=== PATIENT | female | born 1980 | race African-American/Black ===

== ENCOUNTER 2016-08-27 20:19 | Emergency (ER) | payer SELFPAY ==
[~2016-08-27] VITALS: Ht 160 cm; Wt 59.0 kg
[~2016-08-27 20:19] MED LIST: HYDR-971 PO; ONDA4TAB10 PO; ONDA4TAB10 SL; ONDA4TAB7 PO; PROM25TA10 PO
[2016-08-27 20:33] VITALS: BP 117/65
[2016-08-27 21:10] LABS: BILIRUBIN,URINE NEGATIVE (NEG); GLUCOSE,URINE NEGATIVE (NEG); NITRITE,URINE NEGATIVE (NEG); PROTEIN,URINE NEGATIVE (NEG-TRACE); UROBILINOGEN,URINE 0.2 mg/dL (0.2 mg/dL)
[2016-08-27 21:16] LABS: BACTERIA,URINE FEW /HPF (0-FEW); SQUAMOUS EPITHELIAL CELL,UR FEW /LPF; WBC,URINE 20-40 /HPF (0-4)
[2016-08-27] MEDS ORDERED: PHEN100T82 PO (21:33)
[2016-08-27] MEDS ORDERED: NITR100C62 PO (21:33)
--- NOTE | 2016-08-27 21:33 | PHYS DOC ---
Past Medical History Past Medical History: Other Additional Past Medical Histor: chrohns, GASTRITIS Past Surgical History: Tubal ligation Alcohol Use: Heavy Drug Use: Marijuana Adult General Chief Complaint Chief Complaint: PAIN ON URINATION [facility] HPI Patient is a 36 year old female presents emergency department stating that she has having urinary frequency and urgency for the last 2 days. She denies any fever, chills or any nausea vomiting. She denies any flank pain. She does state that she has having some lower abdominal pain and discomfort. She denies any vaginal discharge. Patient states she had a urinary tract infection approximately 6 months ago. Patient states her last menstrual period was 6 months ago. Review of Systems Review of Systems Constitutional: Denies fever or chills [] Eyes: Denies change in visual acuity, redness, or eye pain [] HENT: Denies nasal congestion or sore throat [] Respiratory: Denies cough or shortness of breath [] Cardiovascular: No additional information not addressed in HPI [] GI: Denies abdominal pain, nausea, vomiting, bloody stools or diarrhea [] : dysuria denies hematuria [] Musculoskeletal: Denies back pain or joint pain [] Integument: Denies rash or skin lesions [] Neurologic: Denies headache, focal weakness or sensory changes [] Allergies Allergies Allergies Coded Allergies Type Severity Reaction Last Updated Verified morphine Allergy Intermediate 05/01/16 Yes Physical Exam Physical Exam Constitutional: Well developed, well nourished, no acute distress, non-toxic appearance. [] HENT: Normocephalic, atraumatic, bilateral external ears normal, oropharynx moist, no oral exudates, nose normal. [] Eyes: PERRLA, EOMI, conjunctiva normal, no discharge. [] Neck: Normal range of motion, no tenderness, supple, no stridor. [] Cardiovascular:Heart rate regular rhythm, no murmur [] Lungs & Thorax: Bilateral breath sounds clear to auscultation [] Abdomen: Bowel sounds hypoactive, soft, no tenderness, no masses, no pulsatile masses. [] Skin: Warm, dry, no erythema, no rash. [] Back: No tenderness, no CVA tenderness Extremities: No tenderness, no cyanosis, no clubbing, ROM intact, no edema. [] Neurologic: Alert and oriented X 3, normal motor function, normal sensory function, no focal deficits noted. [] Psychologic: Affect normal, judgement normal, mood normal. [] Current Patient Data Vital Signs Vital Signs Date Time Temp Pulse Resp B/P Pulse Ox O2 Delivery O2 Flow Rate FiO2 08/27/16 20:33 99.3 82 16 117/65 99 Room Air 99.3 Lab Values Laboratory Tests Test 08/27/16 20:11 08/27/16 20:50 POC Urine HCG, Qualitative Hcg negative (Negative) Urine Collection Type Unknown Urine Color Yellow Urine Clarity Clear Urine pH 6.0 Urine Specific [place] 1.010 Urine Protein Negativemg/dL (NEG-TRACE) Urine Glucose (UA) Negativemg/dL (NEG) Urine Ketones (Stick) Tracemg/dL (NEG) Urine Blood Large (NEG) Urine Nitrite Negative (NEG) Urine Bilirubin Negative (NEG) Urine Urobilinogen Dipstick 0.2mg/dL (0.2 mg/dL) Urine Leukocyte Esterase Large (NEG) Urine RBC 11-20/HPF (0-2) Urine WBC 20-40/HPF (0-4) Urine Squamous Epithelial Cells Few/LPF Urine Bacteria Few/HPF (0-FEW) EKG EKG [] Radiology/Procedures Radiology/Procedures [] Course & Med Decision Making Course & Med Decision Making Pertinent Labs and Imaging studies reviewed. (See chart for details) Urine was positive for urinary tract infection. Patient will be placed on Macrobid. She'll be provided a Pyridium here in the emergency department. She' ll also be provided with a perception for protein. She was recommended to drink plenty of fluids such as water and cranberry juice. Recommended to avoid Matti's cocktail carbonate beverages citrus fruits alcohol disease are considered irritants to the bladder. Patient agrees with discharge instructions treatment regimens and follow-up recommendations. Signs and symptoms to return back to emergency prior has been provided. [] Dragon Disclaimer Dragon Disclaimer This electronic medical record was generated, in whole or in part, using a voice recognition dictation system. Departure Departure Impression: Primary Impression: Urinary tract infection Disposition: 01 HOME, SELF-CARE Condition: STABLE Referrals: NO PCP (PCP) Patient Instructions: Urinary Tract Infection, [id number] Additional Instructions: Your urine tested positive for urinary tract infection. Medication as prescribed. Drink plenty of fluids such as water and cranberry juice. Avoid cranberry juice cocktail, carbonate beverages, citrus fruits, caffeine, and alcohol sees her considered irritants to the bladder. Follow-up with her primary care physician next 7-10 days to make sure you cleared the urinary tract infection. Return back to emergency department for signs and symptoms of become worse. Scripts Phenazopyridine Hcl (Pyridium)100 Mg [id number] Mg PO TID #9 TAB Prov:SLAAV PAUL APRN 08/27/16 Nitrofurantoin Monohyd/M-Cryst (Macrobid 100 Mg Capsule)100 Mg Capsule1 Cap PO BID #14 CAP Prov:SLAVA PAUL APRN 08/27/16 SLAVA PAUL APRN Aug 27, 2016 21:33
[2016-08-27] MEDS ORDERED: PHENAZOPYRIDINE 200 MG TABLET. PO ONE (22:00)
== END 2016-08-27 21:41 | disposition home or self-care (01) ==
LOC: ER 20:19
DX: N39.0 Urinary tract infection, site not specified (principal); F12.10 Cannabis abuse, uncomplicated; Z98.51 Tubal ligation status; Z88.5 Allergy status to narcotic agent
CPT/HCPCS: 81001; 81025; 87086; 87186; 99284

== ENCOUNTER 2016-09-22 11:41 | Emergency (ER) | payer SELFPAY ==
[~2016-09-22] VITALS: Ht 160 cm; Wt 61.2 kg
[~2016-09-22 11:41] MED LIST changes: +NITR100C62 PO; +PHEN100T82 PO
[2016-09-22] MEDS ORDERED: ONDANSETRON PF 4 MG/2 ML VIAL. ONE (12:11)
[2016-09-22] MEDS ORDERED: ONDANSETRON PF 4 MG/2 ML VIAL. IV ONE (12:15)
--- NOTE | 2016-09-22 12:39 | PHYS DOC ---
Past Medical History Past Medical History: Other Additional Past Medical Histor: chrohns, GASTRITIS Past Medical History EAB 1 Past Surgical History: Tubal ligation Past Surgical History Elective times one Alcohol Use: Heavy Drug Use: Marijuana Social History Narrative: former, last use 1 month ago Adult General Chief Complaint Chief Complaint: NAUSEA/VOMITING/DIARRHA HPI HPI Patient is a 36 year old female who presents with since 4 AM sudden onset nausea vomiting 10 clear emesis not bloody or grams, diarrhea 4 liquidy not bloody denies melena. Please of some epigastric pain no pelvic pain no dysuria or frequency no back pain. Had a recent UTI that was treated within the last 30 days. Admits to binge drinking. Initially did not admit to having Crohn's but apparently just takes medicine as needed for that. She did admit to drinking heavily yesterday after a . Review of Systems Review of Systems Constitutional: Denies fever or chills [] Eyes: Denies change in visual acuity, redness, or eye pain [] HENT: Denies nasal congestion or sore throat [] Respiratory: Denies cough or shortness of breath [] Cardiovascular: No additional information not addressed in HPI [] GI: Denies abdominal pain, nausea, vomiting, bloody stools or diarrhea [] : Denies dysuria or hematuria [] Musculoskeletal: Denies back pain or joint pain [] Integument: Denies rash or skin lesions [] Neurologic: Denies headache, focal weakness or sensory changes [] Endocrine: Denies polyuria or polydipsia [] Current Medications Current Medications Current Medications Medications (Trade) Dose Ordered Sig/[facility] Start Time Stop Time Status Last Admin Dose Admin Hydromorphone HCl (Dilaudid) 0.5 mg 1X ONCE 09/22/16 12:45 09/22/16 12:46 DC 09/22/16 12:47 0.5 MG Ondansetron HCl (Zofran Odt) 4 mg STK-MED ONCE 09/22/16 15:16 09/22/16 15:17 DC Ondansetron HCl (Zofran) 4 mg 1X ONCE 09/22/16 12:15 09/22/16 12:16 DC 09/22/16 12:16 4 MG Pantoprazole Sodium (Protonix Vial) 40 mg 1X ONCE 09/22/16 12:45 09/22/16 12:46 DC 09/22/16 12:47 40 MG Sodium Chloride 500 ml @ 500 mls/hr 1X ONCE 09/22/16 14:45 09/22/16 15:23 DC 09/22/16 14:41 500 MLS/HR Allergies Allergies Allergies Coded Allergies Type Severity Reaction Last Updated Verified morphine Allergy Intermediate 09/22/16 Yes Physical Exam Physical Exam Constitutional: Well developed, well nourished, no acute distress, non-toxic appearance. [] HENT: Normocephalic, atraumatic, bilateral external ears normal, oropharynx moist, no oral exudates, nose normal. [] Eyes: PERRLA, EOMI, conjunctiva normal, no discharge. [] Neck: Normal range of motion, no tenderness, supple, no stridor. [] Cardiovascular:Heart rate regular rhythm, no murmur [] Lungs & Thorax: Bilateral breath sounds clear to auscultation [] Abdomen: Bowel sounds normal, soft, tender in epigastric region no right upper quadrant or right lower quadrant tenderness no rebound no peritoneal signs., no masses, no pulsatile masses. [] Skin: Warm, dry, no erythema, no rash. [] Back: No tenderness, no CVA tenderness. [] Extremities: No tenderness, no cyanosis, no clubbing, ROM intact, no edema. [] Neurologic: Alert and oriented X 3, normal motor function, normal sensory function, no focal deficits noted. [] Psychologic: Affect normal, judgement normal, mood normal. [] Current Patient Data Vital Signs Vital Signs Date Time Temp Pulse Resp B/P (MAP) Pulse Ox O2 Delivery O2 Flow Rate FiO2 09/22/16 14:58 44 19 122/79 (93) 100 Room Air 09/22/16 11:50 97.9 97.9 Lab Values Laboratory Tests Test 09/22/16 10:56 09/22/16 11:50 09/22/16 12:05 POC Urine HCG, Qualitative Hcg negative (Negative) Urine Collection Type Unknown Urine Color Yellow Urine Clarity Clear Urine pH 8.5 Urine Specific [place] 1.020 Urine Protein 100 mg/dL (NEG-TRACE) Urine Glucose (UA) Negative mg/dL (NEG) Urine Ketones (Stick) >=80 mg/dL (NEG) Urine Blood Negative (NEG) Urine Nitrite Negative (NEG) Urine Bilirubin Negative (NEG) Urine Urobilinogen Dipstick 1.0 mg/dL (0.2 mg/dL) Urine Leukocyte Esterase Negative (NEG) Urine RBC 1-2 /HPF (0-2) Urine WBC 1-4 /HPF (0-4) Urine Squamous Epithelial Cells Mod /LPF Urine Bacteria Few /HPF (0-FEW) Urine Mucus Mod /LPF White Blood Count 10.6 x10^3/uL (4.0-11.0) Red Blood Count 4.38 x10^6/uL (3.50-5.40) Hemoglobin 13.4 g/dL (12.0-15.5) Hematocrit 40.3 % (36.0-47.0) Mean Corpuscular Volume 92 fL (79-100) Mean Corpuscular Hemoglobin 31 pg (25-35) Mean Corpuscular Hemoglobin Concent 33 g/dL (31-37) Red Cell Distribution Width 12.9 % (11.5-14.5) Platelet Count 557 x10^3/uL (140-400) H Neutrophils (%) (Auto) 86 % (31-73) H Lymphocytes (%) (Auto) 12 % (24-48) L Monocytes (%) (Auto) 2 % (0-9) Eosinophils (%) (Auto) 0 % (0-3) Basophils (%) (Auto) 0 % (0-3) Neutrophils # (Auto) 9.1 x10^3uL (1.8-7.7) H Lymphocytes # (Auto) 1.2 x10^3/uL (1.0-4.8) Monocytes # (Auto) 0.2 x10^3/uL (0.0-1.1) Eosinophils # (Auto) 0.0 x10^3/uL (0.0-0.7) Basophils # (Auto) 0.0 x10^3/uL (0.0-0.2) Sodium Level 140 mmol/L (136-145) Potassium Level 3.6 mmol/L (3.5-5.1) Chloride Level 104 mmol/L (98-107) Carbon Dioxide Level 21 mmol/L (21-32) Anion Gap 15 (6-14) H Blood Urea Nitrogen 12 mg/dL (7-20) Creatinine 0.8 mg/dL (0.6-1.0) Estimated GFR (Cockcroft-Gault) 99.4 BUN/Creatinine Ratio 15 (6-20) Glucose Level 131 mg/dL (70-99) H Calcium Level 9.9 mg/dL (8.5-10.1) Total Bilirubin 0.6 mg/dL (0.2-1.0) Aspartate Amino Transferase (AST) 16 U/L (15-37) Alanine Aminotransferase (ALT) 21 U/L (14-59) Alkaline Phosphatase 72 U/L (46-116) Total Protein 8.1 g/dL (6.4-8.2) Albumin 4.4 g/dL (3.4-5.0) Albumin/Globulin Ratio 1.2 (1.0-1.7) Lipase 56 U/L (73-393) L Laboratory Tests 09/22/16 12:05 Laboratory Tests 09/22/16 12:05 EKG EKG [] Radiology/Procedures Radiology/Procedures [] Course & Med Decision Making Course & Med Decision Making Pertinent Labs and Imaging studies reviewed. (See chart for details) 1435 reexamination patient appears improved vital signs are stable although she is requesting one more bag of IV fluids before she goes home. Patient's abdominal exam was fairly benign. No emergent indication for CT scanning surgical consultation or admission to the hospital. She improved with symptomatic and supportive care. However things could worsen and I have advised the patient to return if symptoms worsen intractable abdominal pain and a fever bloody emesis or stool. [] Dragon Disclaimer Dragon Disclaimer This electronic medical record was generated, in whole or in part, using a voice recognition dictation system. Departure Departure Impression: Primary Impression: Gastritis Additional Impression: Nausea & vomiting Disposition: 01 HOME, SELF-CARE Condition: IMPROVED Referrals: NO PCP (PCP) Scripts Ondansetron (ZOFRAN ODT) 4 Mg Tab.rapdis 1 TAB SL Q8HRS, #10 TAB Prov: FERNANDO BANEGAS MD 09/22/16 Famotidine (PEPCID) 20 Mg Tablet 20 MG PO HS for 14 Days, #14 TAB Prov: FERNANDO BANEGAS MD 09/22/16 Problem Qualifiers FERNANDO BNAEGAS MD September 22, 2016 12:39
[2016-09-22 12:41] LABS: BASO % 0 % (0-3); EOS % 0 % (0-3); HEMATOCRIT 40.3 % (36.0-47.0); HEMOGLOBIN 13.4 g/dL (12.0-15.5); LYMPH # 1.2 x10^3/uL (1.0-4.8); LYMPH % 12 % (24-48); MEAN CORPUSCULAR HEMOGLOBIN 31 pg (25-35); MEAN CORPUSCULAR HGB CONC 33 g/dL (31-37); MEAN CORPUSCULAR VOLUME 92 fL (79-100); MONO % 2 % (0-9); NEUT % 86 % (31-73); PLATELET COUNT 557 x10^3/uL (140-400); RED BLOOD COUNT 4.38 x10^6/uL (3.50-5.40); RED CELL DISTRIBUTION WIDTH 12.9 % (11.5-14.5); WHITE BLOOD COUNT 10.6 x10^3/uL (4.0-11.0)
[2016-09-22 12:42] LABS: BILIRUBIN,URINE NEGATIVE (NEG); GLUCOSE,URINE NEGATIVE (NEG); NITRITE,URINE NEGATIVE (NEG); PH,URINE 8.5; PROTEIN,URINE 100 mg/dL (NEG-TRACE)
[2016-09-22] MEDS ORDERED: HYDROmorphone 2 MG/ML VIAL IV ONE (12:45)
[2016-09-22] MEDS ORDERED: PANTOPRAZOLE IV PUSH 40 MG VIAL. IVP ONE (12:45)
[2016-09-22] MEDS ORDERED: IV NORMAL SALINE 1000ML BAG 1,000 ML IV ONE (12:45)
[2016-09-22 12:50] LABS: BACTERIA,URINE FEW /HPF (0-FEW); SQUAMOUS EPITHELIAL CELL,UR MOD /LPF
[2016-09-22 12:53] LABS: CALCIUM 9.9 mg/dL (8.5-10.1); CREATININE 0.8 mg/dL (0.6-1.0); GFR 99.4; POTASSIUM 3.6 mmol/L (3.5-5.1)
[2016-09-22 12:59] LABS: ALBUMIN 4.4 g/dL (3.4-5.0); ALBUMIN/GLOBULIN RATIO 1.2 (1.0-1.7); TOTAL BILIRUBIN 0.6 mg/dL (0.2-1.0); TOTAL PROTEIN 8.1 g/dL (6.4-8.2)
[2016-09-22] MEDS ORDERED: IV NORMAL SALINE 500ML BAG 500 ML IV ONE (14:45)
[2016-09-22] MEDS ORDERED: FAMO-63 PO (14:48)
[2016-09-22] MEDS ORDERED: ONDA4TAB10 SL (14:48)
[2016-09-22 14:58] VITALS: BP 122/79
[2016-09-22] MEDS ORDERED: ONDANSETRON ODT 4 MG TAB.RAPDIS. ONE (15:16)
[2016-09-22] MEDS ORDERED: ONDANSETRON ODT 4 MG TAB.RAPDIS. PO ONE (15:30)
== END 2016-09-22 15:05 | disposition home or self-care (01) ==
LOC: ER 11:41
DX: K29.70 Gastritis, unspecified, without bleeding (principal); F12.10 Cannabis abuse, uncomplicated; Z98.51 Tubal ligation status; Z88.5 Allergy status to narcotic agent
CPT/HCPCS: 36415; 80053; 81001; 83690; 84703; 85027; 96361; 96374; 96375; 99284; C9113; J1170; J2405; J7030; J7040; Q0162; 81025

== ENCOUNTER 2017-01-03 11:02 | Emergency (ER) | payer SELFPAY ==
[~2017-01-03] VITALS: Ht 160 cm; Wt 61.2 kg
[~2017-01-03 11:02] MED LIST changes: +FAMO-63 PO
[2017-01-03 11:10] VITALS: BP 124/73
[2017-01-03] MEDS ORDERED: NAPROXEN 500 MG TABLET PO STA (11:32)
--- NOTE | 2017-01-03 11:33 | RAD ---
Examination: 3 views of the right wrist History: History of fall, pain Comparison: None available Findings: The alignment of the carpal bones grossly appears unremarkable. There is no obvious acute fracture identified. Mild soft tissue swelling identified in the dorsum of the wrist. Impression: 1. No acute osseous findings. 2. Mild soft tissue swelling dorsum of the wrist likely secondary to soft tissue injury.
[2017-01-03] MEDS ORDERED: HYDROcodone/APAP 5/325MG 1 TAB TABLET PO ONE (11:45)
[2017-01-03] MEDS ORDERED: TRAM-48 PO (12:08)
--- NOTE | 2017-01-03 12:09 | PHYS DOC ---
Past Medical History Past Medical History: Other Additional Past Medical Histor: chrohns, GASTRITIS Past Surgical History: Tubal ligation Alcohol Use: Heavy Drug Use: Marijuana Adult General Chief Complaint Chief Complaint: WRIST PAIN HPI HPI Patient is a 36 year old female with no significant medical history with presents today with mild right lateral wrist pain worse on ROM that began yesterday after she fell down 4 steps. Patient denies any loss of consciousness. Review of Systems Review of Systems Constitutional: Denies fever or chills [] Musculoskeletal: mild right lateral wrist pain Integument: Denies rash or skin lesions [] Neurologic: Denies headache, focal weakness or sensory changes [] Current Medications Current Medications Current Medications Medications (Trade) Dose Ordered Sig/[place] Start Time Stop Time Status Last Admin Dose Admin Acetaminophen/ Hydrocodone Bitart (Lortab 5/325) 1 tab 1X ONCE 01/03/17 11:45 01/03/17 11:46 DC 01/03/17 11:49 1 TAB Naproxen (Naprosyn) 500 mg 1X STAT 01/03/17 11:32 01/03/17 11:36 DC 01/03/17 11:49 500 MG Allergies Allergies Allergies Coded Allergies Type Severity Reaction Last Updated Verified morphine Allergy Intermediate 09/22/16 Yes Physical Exam Physical Exam Constitutional: Well developed, well nourished, no acute distress, non-toxic appearance. [] Skin: Warm, dry, no erythema, no rash. [] Back: No tenderness, no CVA tenderness. [] Extremities: Right wrist with mild soft tissue swelling. No scaphoid tenderness on the right wrist. Tenderness on the distal ulna ventral aspect. Full range of motion to the right wrist. +2 right radial pulse. Cap refill less than 2 seconds the right fingers. Sensation intact to the right upper extremity. Neurologic: Alert and oriented X 3, normal motor function, normal sensory function, no focal deficits noted. [] Psychologic: Affect normal, judgement normal, mood normal. [] Current Patient Data Vital Signs Vital Signs Date Time Temp Pulse Resp B/P (MAP) Pulse Ox O2 Delivery O2 Flow Rate FiO2 01/03/17 11:10 98.3 70 16 97 Room Air 98.3 EKG EKG [] Radiology/Procedures Radiology/Procedures [] Course & Med Decision Making Course & Med Decision Making Pertinent Labs and Imaging studies reviewed. (See chart for details) Patient is in the ED with a right wrist pain after falling yesterday. Right wrist x-rays interpreted by radiologist were negative for any acute findings. Patient was placed in a right wrist splint by the remediation technician neurovascular exam is intact. Ice elevation encouraged. Tylenol/Ultram for pain. Follow-up with Ortho in one week. Dragon Disclaimer Dragon Disclaimer This electronic medical record was generated, in whole or in part, using a voice recognition dictation system. Departure Departure Impression: Primary Impression: Right wrist sprain Additional Impression: Fall down steps Disposition: HOME, SELF-CARE Condition: STABLE Referrals: NO PCP (PCP) MIKO CUTLER MD follow up with your doctor in one week or the provided Orthopedic doctor Patient Instructions: Wrist Splint, [id number], Wrist Sprain with [facility] Additional Instructions: You were seen for right wrist sprain. Wear the splint provided as tolerated. Ice and elevate the extremity. Take the prescribed medicine as needed. Follow- up with orthopedic doctor in one week if pain continues. Scripts Tramadol Hcl (ULTRAM) 50 Mg Tablet 1 TAB PO Q6HRS, #30 TAB Prov: DARIO BOWMAN APRN 01/03/17 Problem Qualifiers Primary Impression: Right wrist sprain Encounter type: initial encounter Qualified Codes: S63.501A - Unspecified sprain of right wrist, initial encounter Additional Impression: Fall down steps Encounter type: initial encounter Qualified Codes: W10.8XXA - Fall (on) ( from) other stairs and steps, initial encounter DARIO BOWMAN APRN Jan 03, 2017 12:09
== END 2017-01-03 12:12 | disposition home or self-care (01) ==
LOC: ER 11:02
DX: S63.501A Unspecified sprain of right wrist, initial encounter (principal); Z88.5 Allergy status to narcotic agent; W10.9XXA Fall (on) (from) unspecified stairs and steps, initial encounter; Y93.89 Activity, other specified; Y92.89 Other specified places as the place of occurrence of the external cause; Y99.8 Other external cause status
CPT/HCPCS: 29125; 73110; 99284-25

== ENCOUNTER 2017-03-23 19:00 | Emergency (ER) | payer SELFPAY ==
[~2017-03-23] VITALS: Ht 160 cm; Wt 61.2 kg
[~2017-03-23 19:00] MED LIST changes: +TRAM-48 PO
[2017-03-23 19:05] VITALS: BP 113/66
--- NOTE | 2017-03-23 19:58 | PHYS DOC ---
Past Medical History Past Medical History: Other Additional Past Medical Histor: crohns, GASTRITIS Past Surgical History: Tubal ligation Alcohol Use: Heavy Drug Use: None Adult General Chief Complaint Chief Complaint: LACERATION/AVULSION HPI HPI Patient is a 36 year old female presents to the emergency department stating that she was trying to cut a sweet potato tonight when she cut her left index finger. Patient states she is right-hand dominant. Bleeding is currently controlled last tetanus immunization was 2 years ago patient states she has some numbness and tingling of the tip however she has a very superficial 1 cm laceration to the finger. Review of Systems Review of Systems Constitutional: Denies fever or chills [] Eyes: Denies change in visual acuity, redness, or eye pain [] HENT: Denies nasal congestion or sore throat [] Respiratory: Denies cough or shortness of breath [] Cardiovascular: No additional information not addressed in HPI [] GI: Denies abdominal pain, nausea, vomiting, bloody stools or diarrhea [] : Denies dysuria or hematuria [] Musculoskeletal: Denies back pain or joint pain [] Integument: Denies rash or skin lesions. left index finger laceration Neurologic: Denies headache, focal weakness or sensory changes [] Endocrine: Denies polyuria or polydipsia [] All other systems were reviewed and found to be within normal limits, except as documented in this note. Allergies Allergies Allergies Coded Allergies Type Severity Reaction Last Updated Verified morphine Allergy Intermediate 09/22/16 Yes Physical Exam Physical Exam Constitutional: Well developed, well nourished, no acute distress, non-toxic appearance. [] HENT: Normocephalic, atraumatic, bilateral external ears normal, oropharynx moist, no oral exudates, nose normal. [] Eyes: PERRLA, EOMI, conjunctiva normal, no discharge. [] Neck: Normal range of motion, no tenderness, supple, no stridor. [] Cardiovascular:Heart rate regular rhythm Lungs & Thorax: no respiratory distress Skin: Warm, dry, no erythema, no rash. Patient with 1 cm superficial laceration noted to the left index finger. Extremities: No tenderness, no cyanosis, no clubbing, ROM intact, no edema. [] Neurologic: Alert and oriented X 3, normal motor function, normal sensory function, no focal deficits noted. [] Psychologic: Affect normal, judgement normal, mood normal. [] Current Patient Data Vital Signs Vital Signs Date Time Temp Pulse Resp B/P (MAP) Pulse Ox O2 Delivery O2 Flow Rate FiO2 03/23/17 19:05 97.9 88 18 100 Room Air 97.9 EKG EKG [] Radiology/Procedures Radiology/Procedures [] Course & Med Decision Making Course & Med Decision Making Pertinent Labs and Imaging studies reviewed. (See chart for details) She irrigated the wound and washed it with soap and water at the bedside. Area was Dermabond and Steri-Stripped. Patient was provided with discharge instructions to keep the area clean and dry. Recommended that the Steri-Strips fall off in approximately to 7-10 days. Recommended that she had not removed the Steri-Strips nor the Dermabond as that will reopen the laceration. Patient was provided with signs and symptoms of infection: Redness, warmth, tenderness or any yellowish/greenish stringently come from the site. Patient agrees with discharge instructions juan regimens and follow-up recommendations. [I've spoken with the patient and/or caregivers. I've explained the patient's condition, diagnosis and treatment plan based on information available to me at this time. I've answered the patient's and/or caregivers questions and addressed any concerns. The patient and/or caregivers have a good understanding the patient's diagnosis, condition and treatment plan as can be expected at this point. Vital signs have been stabilized. The patient's condition is stable for discharge from the emergency department. The patient will pursue further outpatient evaluation with her primary care provider or other designated consulting physician as outlined in the discharge instructions. Patient and/or caregivers are agreeable to this plan of care and follow-up instructions have been explained in detail. The patient and/or caregivers have received these instructions in written format and expressed understanding of these discharge instructions. The patient and her caregivers are aware that if any significant change in condition or worsening of symptoms should prompt him to immediately return to this of the closest emergency department. If an emergent department is not readily available I would encourage him to call 911.] Dragon Disclaimer Dragon Disclaimer This electronic medical record was generated, in whole or in part, using a voice recognition dictation system. Departure Departure Impression: Primary Impression: Laceration Disposition: 01 HOME, SELF-CARE Condition: STABLE Referrals: NO PCP (PCP) Patient Instructions: Laceration Care, Adult, Sterile Tape Wound Closure, Stitches, [place] or Skin Adhesive Strips, [id number] Additional Instructions: Activity as tolerated. Keep the finger clean and dry. The Steri-Strips should fall off in approximately 7-10 days. Do not remove the Dermabond. Watch for signs and symptoms of infection: Redness, warmth, tenderness or Venron/ greenish in [place] from the site if that she cranially to follow-up through primary care physician immediately. Follow-up through primary care physician as needed within the next week. Return back to emergency #symptoms become worse. SLAVA PAUL RELIEF MASTER Mar 23, 2017 19:58
== END 2017-03-23 20:04 | disposition home or self-care (01) ==
LOC: ER 19:00
DX: S61.211A Laceration without foreign body of left index finger without damage to nail, initial encounter (principal); Z88.5 Allergy status to narcotic agent; Y28.8XXA Contact with other sharp object, undetermined intent, initial encounter; Y93.89 Activity, other specified; Y99.8 Other external cause status; Y92.89 Other specified places as the place of occurrence of the external cause
CPT/HCPCS: 12001; 99283-25

== ENCOUNTER 2017-06-26 15:10 | Emergency (ER) | payer SELFPAY ==
[2017-06-26] MEDS ORDERED: ONDANSETRON PF 4 MG/2 ML VIAL. ×2 (15:50)
[2017-06-26] MEDS ORDERED: MORPHINE SULFATE 2 MG/ML DISP.SYRIN. IV/SQ ×2 (16:00)
[2017-06-26 16:05] LABS: URINE HCG POC HCG NEGATIVE (Negative)
[2017-06-26 16:12] LABS: ADD MAN DIFF? NO
[2017-06-26] MEDS: HYDROmorphone 2 MG/ML VIAL IV ×2 (16:12)
[2017-06-26] MEDS: ONDANSETRON PF 4 MG/2 ML VIAL. IV ×2 (16:12)
[2017-06-26] MEDS: IV NORMAL SALINE 1000ML BAG 1,000 ML IV ×2 (16:13)
[2017-06-26 16:15] LABS: BASO % 1 % (0-3); EOS # 0.1 x10^3/uL (0.0-0.7); EOS % 1 % (0-3); HEMATOCRIT 43.4 % (36.0-47.0); HEMOGLOBIN 14.5 g/dL (12.0-15.5); LYMPH # 1.8 x10^3/uL (1.0-4.8); LYMPH % 20 % (24-48); MEAN CORPUSCULAR HEMOGLOBIN 30 pg (25-35); MEAN CORPUSCULAR HGB CONC 33 g/dL (31-37); MEAN CORPUSCULAR VOLUME 91 fL (79-100); MONO # 0.4 x10^3/uL (0.0-1.1); MONO % 5 % (0-9); NEUT # 6.7 x10^3uL (1.8-7.7); NEUT % 74 % (31-73); PLATELET COUNT 637 x10^3/uL (140-400); RED BLOOD COUNT 4.76 x10^6/uL (3.50-5.40); RED CELL DISTRIBUTION WIDTH 13.1 % (11.5-14.5); WHITE BLOOD COUNT 9.1 x10^3/uL (4.0-11.0)
[2017-06-26 16:16] LABS: BILIRUBIN,URINE NEGATIVE (NEG); COLOR,URINE YELLOW; GLUCOSE,URINE NEGATIVE (NEG); NITRITE,URINE NEGATIVE (NEG); PH,URINE 8.5; PROTEIN,URINE 100 mg/dL (NEG-TRACE); UROBILINOGEN,URINE 0.2 mg/dL (0.2 mg/dL)
[2017-06-26 16:25] LABS: BACTERIA,URINE FEW /HPF (0-FEW); CLARITY,URINE CLEAR; RBC,URINE 0 /HPF (0-2); SQUAMOUS EPITHELIAL CELL,UR MANY /LPF
[2017-06-26 16:28] LABS: ANION GAP 9 (6-14); BLOOD UREA NITROGEN 12 mg/dL (7-20); BUN/CREATININE RATIO 13 (6-20); CARBON DIOXIDE 26 mmol/L (21-32); CHLORIDE 105 mmol/L (98-107); CREATININE 0.9 mg/dL (0.6-1.0); GFR 86.2; GLUCOSE 113 mg/dL (70-99); POTASSIUM 3.9 mmol/L (3.5-5.1); SODIUM 140 mmol/L (136-145)
[2017-06-26 16:33] LABS: ALK PHOS 69 U/L (46-116); ALT (SGPT) 19 U/L (14-59); AST (SGOT) 14 U/L (15-37); LIPASE 61 U/L (73-393); TOTAL BILIRUBIN 0.5 mg/dL (0.2-1.0); TOTAL PROTEIN 7.9 g/dL (6.4-8.2)
[2017-06-26] MEDS ORDERED: CONTRAST GIVEN MC ×2 (17:30)
[2017-06-26] MEDS: IOHEXOL 300 MG/ML 100ML VIAL. IV ×2 (18:02)
== END 2017-06-26 18:15 | disposition home or self-care (01) ==
LOC: ER 15:10
DX: R10.13 Epigastric pain (principal); R11.2 Nausea with vomiting, unspecified; Z88.5 Allergy status to narcotic agent
CPT/HCPCS: 36415; 74177; 80053; 81001; 81025; 83690; 85025; 96361; 96374; 96375; 99285-25; J1170; J2405; J7030; Q9967

== ENCOUNTER 2017-07-26 09:17 | Emergency (ER) | payer SELFPAY | END 2017-07-26 10:08 | disposition home or self-care (01) | LOC: ER 09:17 | DX: H66.92 Otitis media, unspecified, left ear (principal); Z98.51 Tubal ligation status; Z88.5 Allergy status to narcotic agent | CPT/HCPCS: 99283 ==

== ENCOUNTER 2017-07-29 10:42 | Emergency (ER) | payer SELFPAY ==
[2017-07-29] MEDS: methylPREDNISolone SOD SUCC PF 125 MG/2 ML VIAL. IM (11:48)
[2017-07-29] MEDS: ONDANSETRON ODT 4 MG TAB.RAPDIS. PO (11:48)
[2017-07-29] MEDS: FAMOTIDINE 20 MG TABLET. PO (11:48)
[2017-07-29] MEDS: diphenhydrAMINE 50 MG/ML VIAL IM (11:48)
== END 2017-07-29 12:51 | disposition home or self-care (01) ==
LOC: ER 10:42
DX: L27.0 Generalized skin eruption due to drugs and medicaments taken internally (principal); T36.0X5A Adverse effect of penicillins, initial encounter; H65.193 Other acute nonsuppurative otitis media, bilateral; Z98.51 Tubal ligation status; Z88.5 Allergy status to narcotic agent; Y92.89 Other specified places as the place of occurrence of the external cause
CPT/HCPCS: 96372; 99284; J1200; J2930; Q0162

== ENCOUNTER 2017-10-16 10:04 | Emergency (ER) | payer OTHER | END 2017-10-16 10:10 | disposition left against medical advice (07) | LOC: ER 10:10 | DX: R11.2 Nausea with vomiting, unspecified (principal); R19.7 Diarrhea, unspecified; Z53.21 Procedure and treatment not carried out due to patient leaving prior to being seen by health care provider ==

== ENCOUNTER 2018-03-09 13:30 | Emergency (ER) | payer OTHER ==
[~2018-03-09] VITALS: Ht 160 cm; Wt 57.2 kg
[~2018-03-09 13:30] MED LIST changes: +AMOX1TAB61 PO; +AZIT250T PO; +OMEP20TA63 PO; +PRED-220 PO; +PRED50TA PO
[2018-03-09] MEDS ORDERED: ONDANSETRON PF 4 MG/2 ML VIAL. ONE (13:33)
[2018-03-09] MEDS ORDERED: IV NORMAL SALINE 1000ML BAG 1,000 ML IV SCH (13:37)
[2018-03-09] MEDS ORDERED: ONDANSETRON PF 4 MG/2 ML VIAL. IV ONE (13:45)
[2018-03-09] MEDS ORDERED: fentaNYL PF VIAL 100 MCG/2 ML VIAL IV ONE (13:45)
--- NOTE | 2018-03-09 13:48 | PHYS DOC ---
Past Medical History Past Medical History: Other Additional Past Medical Histor: crohns, GASTRITIS Past Surgical History: Tubal ligation Alcohol Use: Occasionally Drug Use: None Adult General Chief Complaint Chief Complaint: ABDOMINAL PAIN HPI HPI Patient is a 37-year-old female who presents with complaint of acute onset of cramping abdominal pain with nausea and vomiting that started yesterday little bit afternoon. She states that since that time she is not able to keep anything down. She rates the pain in her abdomen and an 8.5 out of 10. She states that she has had no bowel movement since yesterday and states that yesterday's bowel movement was normal. Patient does have history of Crohn's disease and states that this feels like one of her Crohn's flareups. She denies any diarrhea or rectal bleeding. She states that she has no history of bowel obstruction. Patient states that symptoms are worsened if she eats or drinks anything. She states that nothing is improving the symptoms. She denies any chest pain, shortness of breath or fever. Review of Systems Review of Systems Constitutional: Denies fever or chills [] Respiratory: Denies cough or shortness of breath [] Cardiovascular: No additional information not addressed in HPI [] GI: Complains of abdominal pain/cramping with nausea and vomiting. No diarrhea [ ] Integument: Denies rash or skin lesions [] All other systems were reviewed and found to be within normal limits, except as documented in this note. Current Medications Current Medications Current Medications Medications (Trade) Dose Ordered Sig/Cortez Start Time Stop Time Status Last Admin Dose Admin Diphenhydramine HCl (Benadryl) 25 mg 1X ONCE 03/09/18 15:15 03/09/18 15:16 DC Fentanyl Citrate (Fentanyl 2ml Vial) 50 mcg 1X ONCE 03/09/18 13:45 03/09/18 13:46 DC 03/09/18 13:48 50 MCG Info (CONTRAST GIVEN -- Rx MONITORING) 1 each PRN DAILY PRN 03/09/18 15:15 03/11/18 15:14 Iohexol (Omnipaque 300 Mg/ml) 75 ml 1X ONCE 03/09/18 15:15 03/09/18 15:16 DC 03/09/18 15:15 75 ML Methylprednisolone Sodium Succinate (SOLU-Medrol 125MG VIAL) 125 mg 1X ONCE 03/09/18 16:15 03/09/18 16:16 DC Metoclopramide HCl (Reglan Vial) 10 mg STK-MED ONCE 03/09/18 15:07 03/09/18 15:08 DC Metronidazole 100 ml @ 100 mls/hr 1X ONCE 03/09/18 16:15 03/09/18 17:14 Ondansetron HCl (Zofran) 4 mg 1X ONCE 03/09/18 13:45 03/09/18 13:46 DC 03/09/18 13:49 4 MG Sodium Chloride 1,000 ml @ 1,000 mls/hr Q1H 03/09/18 13:37 03/09/18 14:36 DC 03/09/18 13:37 1,000 MLS/HR Allergies Allergies Allergies Coded Allergies Type Severity Reaction Last Updated Verified amoxicillin Allergy Intermediate hives 08/03/17 Yes morphine Allergy Intermediate 08/03/17 Yes Physical Exam Physical Exam Constitutional: Well developed, well nourished, in mild distress, non-toxic appearance. [] HENT: Normocephalic, atraumatic, bilateral external ears normal, oropharynx moist, no oral exudates, nose normal. [] Eyes: PERRLA, EOMI, conjunctiva normal, no discharge. [] Neck: Normal range of motion, no tenderness, supple, no stridor. [] Cardiovascular:Heart rate regular rhythm [] Lungs & Thorax: Bilateral breath sounds clear to auscultation [] Abdomen: Bowel sounds normal, soft, with diffuse tenderness. [] Skin: Warm, dry, no erythema, no rash. [] Extremities: No tenderness, no cyanosis, no clubbing, ROM intact, no edema. [] Neurologic: Alert and oriented X 3, normal motor function, normal sensory function, no focal deficits noted. [] Current Patient Data Vital Signs Vital Signs Date Time Temp Pulse Resp B/P (MAP) Pulse Ox O2 Delivery O2 Flow Rate FiO2 03/09/18 13:48 20 100 03/09/18 13:38 98.3 64 131/72 (91) Room Air 98.3 Lab Values Laboratory Tests Test 03/09/18 13:40 03/09/18 14:37 03/09/18 14:38 White Blood Count 9.4 x10^3/uL (4.0-11.0) Red Blood Count 4.50 x10^6/uL (3.50-5.40) Hemoglobin 14.3 g/dL (12.0-15.5) Hematocrit 41.0 % (36.0-47.0) Mean Corpuscular Volume 91 fL (79-100) Mean Corpuscular Hemoglobin 32 pg (25-35) Mean Corpuscular Hemoglobin Concent 35 g/dL (31-37) Red Cell Distribution Width 12.7 % (11.5-14.5) Platelet Count 640 x10^3/uL (140-400) H Neutrophils (%) (Auto) 89 % (31-73) H Lymphocytes (%) (Auto) 10 % (24-48) L Monocytes (%) (Auto) 1 % (0-9) Eosinophils (%) (Auto) 0 % (0-3) Basophils (%) (Auto) 0 % (0-3) Neutrophils # (Auto) 8.3 x10^3uL (1.8-7.7) H Lymphocytes # (Auto) 0.9 x10^3/uL (1.0-4.8) L Monocytes # (Auto) 0.1 x10^3/uL (0.0-1.1) Eosinophils # (Auto) 0.0 x10^3/uL (0.0-0.7) Basophils # (Auto) 0.0 x10^3/uL (0.0-0.2) Segmented Neutrophils % 84 % (35-66) H Lymphocytes % 13 % (24-48) L Monocytes % 3 % (0-10) Platelet Estimate Adequate (ADEQUATE) Sodium Level 141 mmol/L (136-145) Potassium Level 3.7 mmol/L (3.5-5.1) Chloride Level 103 mmol/L (98-107) Carbon Dioxide Level 21 mmol/L (21-32) Anion Gap 17 (6-14) H Blood Urea Nitrogen 15 mg/dL (7-20) Creatinine 0.9 mg/dL (0.6-1.0) Estimated GFR (Cockcroft-Gault) 86.2 BUN/Creatinine Ratio 17 (6-20) Glucose Level 134 mg/dL (70-99) H Calcium Level 10.0 mg/dL (8.5-10.1) Total Bilirubin 0.7 mg/dL (0.2-1.0) Aspartate Amino Transferase (AST) 14 U/L (15-37) L Alanine Aminotransferase (ALT) 22 U/L (14-59) Alkaline Phosphatase 77 U/L (46-116) Total Protein 8.5 g/dL (6.4-8.2) H Albumin 4.3 g/dL (3.4-5.0) Albumin/Globulin Ratio 1.0 (1.0-1.7) Lipase 68 U/L (73-393) L Urine Collection Type Unknown Urine Color Yellow Urine Clarity Clear Urine pH 8.5 Urine Specific [place] >=1.030 Urine Protein 100 mg/dL (NEG-TRACE) Urine Glucose (UA) Negative mg/dL (NEG) Urine Ketones (Stick) >=80 mg/dL (NEG) Urine Blood Moderate (NEG) Urine Nitrite Negative (NEG) Urine Bilirubin Negative (NEG) Urine Urobilinogen Dipstick 1.0 mg/dL (0.2 mg/dL) Urine Leukocyte Esterase Negative (NEG) Urine RBC 6-10 /HPF (0-2) Urine WBC Occ /HPF (0-4) Urine Squamous Epithelial Cells Mod /LPF Urine Bacteria Few /HPF (0-FEW) Urine Hyaline Casts Occasional /HPF Urine Mucus Marked /LPF Urine Opiates Screen Pos (NEG) Urine Methadone Screen Neg (NEG) Urine Barbiturates Neg (NEG) Urine Phencyclidine Screen Neg (NEG) Urine Amphetamine/Methamphetamine Neg (NEG) Urine Benzodiazepines Screen Neg (NEG) Urine Cocaine Screen Neg (NEG) Urine Cannabinoids Screen Pos (NEG) Urine Ethyl Alcohol Neg (NEG) POC Urine HCG, Qualitative Hcg negative (Negative) Laboratory Tests 03/09/18 13:40 Laboratory Tests 03/09/18 13:40 EKG EKG [] Radiology/Procedures Radiology/Procedures [] Impressions: CT Abd/Pelvis: IMPRESSION: 1. Right tubal location clip has significantly change in position and is now near the cul-de-sac and migration with possible tubal patency cannot be excluded. Gynecologic consultation should be considered. 2. Mild subsegmental colonic mural thickening, consistent with nonspecific colitis may be infectious or inflammatory in etiology and less likely ischemic. Electronically signed by: Nakul Cee MD (03/09/2018 3:59 PM) [id number] Course & Med Decision Making Course & Med Decision Making Pertinent Labs and Imaging studies reviewed. (See chart for details) [] Dragon Disclaimer Dragon Disclaimer This electronic medical record was generated, in whole or in part, using a voice recognition dictation system. Departure Departure Impression: Primary Impression: Colitis Additional Impression: Cannabinoid hyperemesis syndrome Disposition: 01 HOME, SELF-CARE Condition: STABLE Referrals: NO PCP (PCP) Patient Instructions: Colitis, Cyclic Vomiting Syndrome, Nausea and Vomiting Scripts Metoclopramide Hcl (REGLAN) 10 Mg Tablet 1 TAB PO QID PRN for NAUSEA/VOMITING, #12 TAB Prov: BRIGID AGUILAR Jr. DO 03/09/18 Hydrocodone/Apap 5-325 (NORCO 5-325 TABLET) 1 Each Tablet 1 EACH PO PRN Q6HRS PRN for PAIN, #15 as needed for pain Prov: BRIGID AGUILAR Jr. DO 03/09/18 Metronidazole (FLAGYL) 500 Mg Tablet 500 MG PO TID, #30 TAB Prov: BRIGID AGUILAR Jr. DO 03/09/18 Ciprofloxacin Hcl (CIPROFLOXACIN HCL) 500 Mg Tablet 1 TAB PO BID, #20 TAB Prov: BRIGID AGUILAR Jr. DO 03/09/18 Problem Qualifiers BRIGID AGUILAR Jr. DO Mar 09, 2018 13:48
[2018-03-09 13:54] LABS: BASO % 0 % (0-3); EOS % 0 % (0-3); HEMOGLOBIN 14.3 g/dL (12.0-15.5); LYMPH # 0.9 x10^3/uL (1.0-4.8); LYMPH % 10 % (24-48); MEAN CORPUSCULAR HEMOGLOBIN 32 pg (25-35); MEAN CORPUSCULAR HGB CONC 35 g/dL (31-37); MEAN CORPUSCULAR VOLUME 91 fL (79-100); MONO # 0.1 x10^3/uL (0.0-1.1); MONO % 1 % (0-9); NEUT # 8.3 x10^3uL (1.8-7.7); NEUT % 89 % (31-73); PLATELET COUNT 640 x10^3/uL (140-400); RED CELL DISTRIBUTION WIDTH 12.7 % (11.5-14.5); WHITE BLOOD COUNT 9.4 x10^3/uL (4.0-11.0)
[2018-03-09 14:13] LABS: CREATININE 0.9 mg/dL (0.6-1.0); GFR 86.2; POTASSIUM 3.7 mmol/L (3.5-5.1)
[2018-03-09 14:19] LABS: ALBUMIN 4.3 g/dL (3.4-5.0); TOTAL BILIRUBIN 0.7 mg/dL (0.2-1.0); TOTAL PROTEIN 8.5 g/dL (6.4-8.2)
[2018-03-09 14:45] LABS: BILIRUBIN,URINE NEGATIVE (NEG); CLARITY,URINE CLEAR; COLOR,URINE YELLOW; NITRITE,URINE NEGATIVE (NEG); PH,URINE 8.5; PROTEIN,URINE 100 mg/dL (NEG-TRACE)
[2018-03-09 14:58] LABS: BACTERIA,URINE FEW /HPF (0-FEW); HYALINE CASTS, URINE OCCASIONAL /HPF; SQUAMOUS EPITHELIAL CELL,UR MOD /LPF; WBC,URINE OCC /HPF (0-4)
[2018-03-09] MEDS ORDERED: METOCLOPRAMIDE HCL 10 MG/2 ML VIAL. ONE (15:07)
[2018-03-09 15:12] LABS: % LYMPHS 13 % (24-48); % MONOS 3 % (0-10); % SEGS 84 % (35-66); PLT ESTIMATE ADEQUATE (ADEQUATE)
[2018-03-09] MEDS ORDERED: IOHEXOL 300 MG/ML 100ML VIAL. IV ONE (15:15)
[2018-03-09] MEDS ORDERED: diphenhydrAMINE 50 MG/ML VIAL IVP ONE (15:15)
[2018-03-09] MEDS ORDERED: METOCLOPRAMIDE HCL 10 MG/2 ML VIAL. IV ONE (15:15)
[2018-03-09] MEDS ORDERED: CONTRAST GIVEN. MC PRN (15:15)
--- NOTE | 2018-03-09 16:02 | RAD ---
CT abdomen and pelvis with contrast 03/09/2018 CLINICAL INDICATION: Abdominal pain and vomiting COMPARISON: CT abdomen pelvis 06/26/2017, 03/25/2016 TECHNIQUE: Multiple CT images of the abdomen and pelvis were obtained following the intravenous and ministration of 75 mL Omnipaque 300. *One or more of the following individualized dose reduction techniques were utilized for this examination: 1. Automated exposure control. 2. Adjustment of the mA and/or kV according to patient size. 3. Use of iterative reconstruction technique. FINDINGS: Heart size is normal. Visualized lung bases are clear. There is a reticulated hyperenhancement pattern in the liver which is most likely due to phase of contrast timing. Liver, spleen, gallbladder, adrenal glands, pancreas and left kidney are unremarkable. There are few stable subcentimeter right renal hypodensities which are too small to definitively characterize, though stability suggest benign cysts. No hydronephrosis. Abdominal aorta normal in caliber. Major portal veins are patent. No retroperitoneal or mesenteric lymphadenopathy. No bowel obstruction. There is mild circumferential thickening of the distal transverse and descending colon without significant pericolonic stranding Appendix is not discretely identified, however no secondary findings of appendicitis at the base of the cecum. Uterus unremarkable. There has been significant change in the positioning of a right tubal ligation clip which is now in the cul-de-sac with a 3 prior examinations in similar position. The left tubal ligation clip is in similar position. There are no destructive osseous lesions. IMPRESSION: 1. Right tubal location clip has significantly change in position and is now near the cul-de-sac and migration with possible tubal patency cannot be excluded. Gynecologic consultation should be considered. 2. Mild subsegmental colonic mural thickening, consistent with nonspecific colitis may be infectious or inflammatory in etiology and less likely ischemic. Electronically signed by: Nakul Cee MD (03/09/2018 3:59 PM) [id number]
[2018-03-09] MEDS ORDERED: methylPREDNISolone SOD SUCC PF 125 MG/2 ML VIAL. IV ONE (16:15)
[2018-03-09] MEDS ORDERED: CIPR500T PO (16:30)
[2018-03-09] MEDS ORDERED: METR500T PO (16:30)
[2018-03-09] MEDS ORDERED: HYDR-971 PO (16:30)
[2018-03-09] MEDS ORDERED: METO10TA81 PO (16:30)
[2018-03-09 16:44] LABS: BARBITURATES NEG (NEG); BENZODIAZEPINES NEG (NEG); CANNABINOIDS POS (NEG); COCAINE NEG (NEG); METHADONE NEG (NEG); OPIATES POS (NEG); PHENCYCLIDINE NEG (NEG)
[2018-03-09 16:45] LABS: AMPHETAMINE/METHAMPHETAMINE NEG (NEG)
[2018-03-09 17:39] VITALS: BP 129/63
== END 2018-03-09 18:10 | disposition home or self-care (01) ==
LOC: ER 13:30
DX: K52.89 Other specified noninfective gastroenteritis and colitis (principal); F12.188 Cannabis abuse with other cannabis-induced disorder; R11.2 Nausea with vomiting, unspecified; Z98.51 Tubal ligation status; Z88.1 Allergy status to other antibiotic agents; Z88.5 Allergy status to narcotic agent
CPT/HCPCS: 36415; 74177; 80053; 80307; 81001; 81025; 83690; 85007; 85025; 96361; 96365; 96375; 99285; J2405; J2765; J2930; J3010; J3490; J7030; Q9967

== ENCOUNTER → 2018-04-20 | Day surgery (SDC) | payer MEDICAID, OTHER ==
[~2018-04-20] MED LIST changes: +CIPR500T PO; +HYDR-3164 PO; -HYDR-971 PO; +IV RINGERS,LACTATED 1000ML 1,000 ML IV SCH; +LIDOCAINE 1% PF 2 ML VIAL. ID PRN; +METO10TA81 PO; +METR500T PO; +MIDAZOLAM HCL/PF 2 MG/2 ML VIAL. IV PRN; +PROPOFOL 60 ML IV ONE; +fentaNYL PF VIAL 100 MCG/2 ML VIAL IV PRN
[2018-04-20 13:41] LABS: U PREG PATIENT NEGATIVE (NEG)
[2018-04-20 15:14] VITALS: BP 112/56
--- NOTE | 2018-04-26 10:08 | PATHOLOGY ---
[facility] Accession Number: [id number] . 01 Material submitted: . PART A: DUODENAL BIOPSY PART B: RANDOM COLON BIOPSY . 01 Clinical history: . Abdominal pain . 02 Diagnosis: A. Small bowel, duodenum, biopsy: - No pathologic diagnosis. . B. Colon, random biopsies: - Multiple fragments of colonic mucosa with mild hyperplastic changes. (SKM:james; 04/24/2018) QMS/04/24/2018 . 02 Electronically signed: . Brad Ramey MD, Pathologist NPI- [id number] . 01 Gross description: . A. Received in formalin labeled "Veronica, Lani, duodenal BX, rule out celiac," are multiple segments of ruffin soft tissue measuring 1.5 x 0.6 x 0.1 cm in aggregate dimensions. The specimen is filtered and entirely submitted in cassette A1. . B. Received in formalin labeled "Veronica, Lani, random colon BX," are multiple segments of ruffin soft tissue measuring 2.3 x 0.4 x 0.1 cm in aggregate dimensions. The specimen is filtered and entirely submitted in cassette B1. (TSD; 04/21/2018) TOB/TOB . 02 Microscopic: . . . 02 Pathologist provided ICD-10: R10.9 . 02 CPT . 194065, 942169 Specimen Comment: A courtesy copy of this report has been sent to Specimen Comment: [phone], . Specimen Comment: Report sent to / DR BANG Specimen Comment: A duplicate report has been generated due to demographic updates. Performed at: [address], [place], [place] [id number] MD Tim Lang MD Phone: [phone] Performed at: [address] [id number] MD Emir Mena MD Phone: [phone]
== END | disposition home or self-care (01) ==
LOC: SURG 13:08
PROVIDERS: ATTEND Internal Medicine Gastroenterology
DX: K64.0 First degree hemorrhoids (principal); K31.89 Other diseases of stomach and duodenum; K50.80 Crohn's disease of both small and large intestine without complications; F41.9 Anxiety disorder, unspecified; F32.9 Major depressive disorder, single episode, unspecified; J45.909 Unspecified asthma, uncomplicated; D64.9 Anemia, unspecified; K21.9 Gastro-esophageal reflux disease without esophagitis; Z79.2 Long term (current) use of antibiotics; Z79.899 Other long term (current) drug therapy; Z88.1 Allergy status to other antibiotic agents; Z98.51 Tubal ligation status; Z87.440 Personal history of urinary (tract) infections; Z72.89 Other problems related to lifestyle
CPT/HCPCS: 43239; 45380; 81025; 88305; J2704

== ENCOUNTER 2018-07-06 14:30 | Emergency (ER) | payer OTHER ==
[~2018-07-06] VITALS: Ht 160 cm; Wt 51.3 kg
[~2018-07-06 14:30] MED LIST changes: +FLUT16SP NS; +IBUP-1027 PO; -IV RINGERS,LACTATED 1000ML 1,000 ML IV SCH; -LIDOCAINE 1% PF 2 ML VIAL. ID PRN; -MIDAZOLAM HCL/PF 2 MG/2 ML VIAL. IV PRN; -PROPOFOL 60 ML IV ONE; -fentaNYL PF VIAL 100 MCG/2 ML VIAL IV PRN
[2018-07-06] MEDS ORDERED: IV NORMAL SALINE 1000ML BAG 1,000 ML IV ONE (15:15)
[2018-07-06] MEDS ORDERED: HALOPERIDOL LACTATE 5 MG/ML VIAL. IVP ONE (15:15)
[2018-07-06 15:50] LABS: BASO # 0.1 x10^3/uL (0.0-0.2); BASO % 0 % (0-3); EOS % 0 % (0-3); HEMATOCRIT 42.2 % (36.0-47.0); LYMPH # 2.2 x10^3/uL (1.0-4.8); LYMPH % 16 % (24-48); MEAN CORPUSCULAR HEMOGLOBIN 31 pg (25-35); MEAN CORPUSCULAR HGB CONC 33 g/dL (31-37); MEAN CORPUSCULAR VOLUME 92 fL (79-100); MONO # 0.6 x10^3/uL (0.0-1.1); MONO % 4 % (0-9); NEUT # 10.8 x10^3uL (1.8-7.7); NEUT % 79 % (31-73); PLATELET COUNT 662 x10^3/uL (140-400); RED CELL DISTRIBUTION WIDTH 13.5 % (11.5-14.5); WHITE BLOOD COUNT 13.6 x10^3/uL (4.0-11.0)
[2018-07-06 16:02] LABS: CALCIUM 9.7 mg/dL (8.5-10.1); CREATININE 0.7 mg/dL (0.6-1.0); GFR 114.6
[2018-07-06] MEDS ORDERED: PROM25SU32 RC (17:16)
--- NOTE | 2018-07-06 17:20 | PHYS DOC ---
Past Medical History Past Medical History: Other Additional Past Medical Histor: crohns, GASTRITIS Past Surgical History: Tubal ligation Alcohol Use: Occasionally Drug Use: Marijuana Adult General Chief Complaint Chief Complaint: NAUSEA/VOMITING/DIARRHA HPI HPI Patient is a 38 year old female who presents the ER for evaluation of intractable nausea and vomiting for the past 24 hours. Patient with frequent ER visits for the same. Patient states that she has been evaluated by her primary care doctor in GI. Symptoms and symptoms are believed to be secondary to migrating tubal clip. Patient does admit to frequent marijuana use.. Patient has not been advised to stop from this. Patient does feel like symptoms intermittently get better with hot showers flashbacks. Patient denies any abdominal pain. Patient reports that this episode exactly like previous other episodes. No GI bleed symptoms. No GI no fever. Review of Systems Review of Systems Constitutional: Denies fever or chills [] Eyes: Denies change in visual acuity, redness, or eye pain [] HENT: Denies nasal congestion or sore throat [] Respiratory: Denies cough or shortness of breath [] Cardiovascular: no chest pain, no Orthopnea, no LE edema GI: +nausea, +vomiting, no diarrhea, no abdominal pain, no GI bleed symptoms. : Denies dysuria or hematuria [] Musculoskeletal: Denies back pain or joint pain [] Integument: Denies rash or skin lesions [] Neurologic: Denies headache, focal weakness or sensory changes [] Endocrine: Denies polyuria or polydipsia [] All other systems were reviewed and found to be within normal limits, except as documented in this note. Current Medications Current Medications Current Medications Medications (Trade) Dose Ordered Sig/Cortez Start Time Stop Time Status Last Admin Dose Admin Haloperidol Lactate (Haldol Inj) 5 mg 1X ONCE 07/06/18 15:15 07/06/18 15:16 DC 07/06/18 15:52 5 MG Sodium Chloride 1,000 ml @ 1,000 mls/hr 1X ONCE 07/06/18 15:15 07/06/18 16:14 DC 07/06/18 15:51 1,000 MLS/HR Allergies Allergies Allergies Coded Allergies Type Severity Reaction Last Updated Verified amoxicillin Allergy Intermediate hives 04/20/18 Yes Physical Exam Physical Exam Constitutional: Well developed, well nourished, no acute distress, non-toxic appearance. [] HENT: Normocephalic, atraumatic, bilateral external ears normal, oropharynx moist, no oral exudates, nose normal. [] Eyes: PERRLA, EOMI, conjunctiva normal, no discharge. [] Neck: Normal range of motion, no tenderness, supple, no stridor. [] Cardiovascular:Heart rate regular rhythm, no murmur [] Lungs & Thorax: Bilateral breath sounds clear to auscultation [] Abdomen: Bowel sounds normal, soft, no tenderness, no masses, no pulsatile masses. [] Skin: Warm, dry, no erythema, no rash. [] Back: No tenderness, no CVA tenderness. [] Extremities: No tenderness, no cyanosis, no clubbing, ROM intact, no edema. [] Neurologic: Alert and oriented X 3, normal motor function, normal sensory function, no focal deficits noted. [] Psychologic: Affect normal, judgement normal, mood normal. [] Current Patient Data Vital Signs Vital Signs Date Time Temp Pulse Resp B/P (MAP) Pulse Ox O2 Delivery O2 Flow Rate FiO2 07/06/18 14:50 98.5 56 16 160/79 (106) 100 Room Air 98.5 Lab Values Laboratory Tests Test 07/06/18 15:42 White Blood Count 13.6 x10^3/uL (4.0-11.0) H Red Blood Count 4.60 x10^6/uL (3.50-5.40) Hemoglobin 14.0 g/dL (12.0-15.5) Hematocrit 42.2 % (36.0-47.0) Mean Corpuscular Volume 92 fL (79-100) Mean Corpuscular Hemoglobin 31 pg (25-35) Mean Corpuscular Hemoglobin Concent 33 g/dL (31-37) Red Cell Distribution Width 13.5 % (11.5-14.5) Platelet Count 662 x10^3/uL (140-400) H Neutrophils (%) (Auto) 79 % (31-73) H Lymphocytes (%) (Auto) 16 % (24-48) L Monocytes (%) (Auto) 4 % (0-9) Eosinophils (%) (Auto) 0 % (0-3) Basophils (%) (Auto) 0 % (0-3) Neutrophils # (Auto) 10.8 x10^3uL (1.8-7.7) H Lymphocytes # (Auto) 2.2 x10^3/uL (1.0-4.8) Monocytes # (Auto) 0.6 x10^3/uL (0.0-1.1) Eosinophils # (Auto) 0.0 x10^3/uL (0.0-0.7) Basophils # (Auto) 0.1 x10^3/uL (0.0-0.2) Sodium Level 138 mmol/L (136-145) Potassium Level 4.0 mmol/L (3.5-5.1) Chloride Level 101 mmol/L (98-107) Carbon Dioxide Level 22 mmol/L (21-32) Anion Gap 15 (6-14) H Blood Urea Nitrogen 17 mg/dL (7-20) Creatinine 0.7 mg/dL (0.6-1.0) Estimated GFR (Cockcroft-Gault) 114.6 Glucose Level 104 mg/dL (70-99) H Calcium Level 9.7 mg/dL (8.5-10.1) Laboratory Tests 07/06/18 15:42 Laboratory Tests 07/06/18 15:42 EKG EKG [] Radiology/Procedures Radiology/Procedures [] Course & Med Decision Making Course & Med Decision Making Pertinent Labs and Imaging studies reviewed. (See chart for details) []Better after IV fluids. Requesting discharge. Tolerating fluids. Advised pt to abstain from marijuana use. We'll provide prescription for Phenergan. Patient has Zofran at home. Advised close follow PCP. Patient prefers Phenergan suppositories. ER return precautions given. Patient verbalized understanding. All questions answered. Dragon Disclaimer Dragon Disclaimer This electronic medical record was generated, in whole or in part, using a voice recognition dictation system. Departure Departure Impression: Primary Impression: Abdominal pain Additional Impressions: Cannabinoid hyperemesis syndrome Nausea & vomiting Disposition: 01 HOME, SELF-CARE Condition: IMPROVED Referrals: Chino BANG MD (PCP) Patient Instructions: Cyclic Vomiting Syndrome Additional Instructions: Thank you for coming to [facility]. Please read the attached handouts. Please follow-up with your primary care physician. Return to the ER if your symptoms worsen or you have any other concerns. Please continue to follow-up with your primary care doctor and GI doctor. Please do a trial of abstain from marijuana for the next 3-4 months to see if it decreases your episodes of intractable nausea Scripts Promethazine HCl (Phenergan) 25 Mg Supp.rect 25 MG RC Q8HRS for 10 Days, #30 SUPP.RECT Prov: RETA MACK DO 07/06/18 Problem Qualifiers RETA MACK DO Jul 06, 2018 17:20
[2018-07-06 17:27] VITALS: BP 132/79
== END 2018-07-06 17:27 | disposition home or self-care (01) ==
LOC: ER 14:30
DX: R11.2 Nausea with vomiting, unspecified (principal); F12.288 Cannabis dependence with other cannabis-induced disorder; R10.9 Unspecified abdominal pain; Z98.51 Tubal ligation status; Z88.1 Allergy status to other antibiotic agents
CPT/HCPCS: 36415; 80048; 85025; 96361; 96374; 99283; J1630; J7030

== ENCOUNTER → 2021-04-08 | Outpatient (CLI) | payer OTHER ==
[~2021-04-08] MED LIST changes: -CIPR500T PO; +CIPR500T2 PO; +PROM25SU32 RC
--- NOTE | 2021-04-08 16:24 | KCIC ---
CT of the abdomen and pelvis without contrast. 04/08/2021 2:06 PM Indication: Reason: Rt. flank pain, microscopic hematuria. History: Hx. Crohn's, tubal. Comparison Study: CT of the abdomen and pelvis March 09, 2018. Technique: Multidetector CT imaging of the abdomen pelvis is obtained without administration of contr ast. Findings: The visualized bilateral lung bases are clear. The liver, spleen, bilateral adrenal glands, gallbladder, and pancreas have a normal noncontrast enh anced appearance. Small areas of hypodensity consistent with previously seen cysts noted within the k idneys. The bilateral kidneys are otherwise grossly normal in appearance. There is no evidence of nep hrolithiasis or obstructive uropathy. The ureters are normal in course and caliber. The bladder is gr ossly unremarkable. Small amount of free fluid is seen in the pelvis, most commonly physiologic in a premenopausal patien t. No pneumoperitoneum is seen. n There is no evidence of bowel obstruction or significant inflamator y change. The appendix is well visualized and grossly normal. There is no acute osseous abnormality i dentified. Impression: 1. No evidence of acute intra-abdominal abnormality 2. No evidence of nephrolithiasis or acute obstructive uropathy. CT DOSING PQRS STATEMENT: One or more of the following individualized dose reduction techniques were utilized for this examinat ion: 1. Automated exposure control 2. Adjustment of the mA and/or kV according to patient size 3. Use of iterative reconstruction technique Electronically signed by: Harley Osborne MD (04/08/2021 4:22 PM) [id number]
== END ==
LOC: KCIC CT 14:03
PROVIDERS: ATTEND Family Medicine
DX: R10.9 Unspecified abdominal pain (principal); R31.9 Hematuria, unspecified
CPT/HCPCS: 74176